=== PATIENT | female | born 1985 | race Caucasian/White ===

== ENCOUNTER 2022-09-03 10:48 | Inpatient (IN) | payer OTHER ==
[2022-09-03 11:23] VITALS: BMI 17.8
[2022-09-03] MEDS ORDERED: P-EPHED 60MG/TRIPROLIDI 2.5MG TABLET PO PRN (13:23)
[2022-09-03] MEDS ORDERED: ACETAMINOPHEN 325 MG TABLET (FP) PO PRN (13:23)
[2022-09-03] MEDS ORDERED: POLYETHYLENE GLYCOL (HEALTHYLAX) 3350 17 GM PACKET PO PRN (13:23)
[2022-09-03] MEDS ORDERED: MAG HYDROX/AL HYDROX/SIMETH 30 ML UNIT-DOSE CUP PO PRN (13:23)
[2022-09-03] MEDS ORDERED: LOPERAMIDE HCL 2 MG CAPSULE PO PRN (13:23)
[2022-09-03] MEDS ORDERED: BENZOCAINE/MENTHOL (CHLORASEPTIC ) LOZENGE MM PRN (13:23)
[2022-09-03] MEDS ORDERED: guaiFENesin 200 MG/10 ML 10 ML UNIT-DOSE CUPS PO PRN (13:23)
[2022-09-03] MEDS ORDERED: MAGNESIUM HYDROX 2400MG/30ML ORAL SUSPENSION 30 ML CUP PO PRN (13:23)
[2022-09-03] MEDS ORDERED: NICOTINE POLACRILEX 4 MG GUM BUC ONE (15:48)
[2022-09-03] MEDS: NICOTINE POLACRILEX 4 MG GUM BUC PRN (15:49)
[2022-09-03 16:16] LABS: CALCIUM 8.8 mg/dL (8.5-10.1)
[2022-09-03 16:18] LABS: ALBUMIN 3.2 g/dl (3.4-5.0); BLOOD UREA NITROGEN 34.7 mg/dL (7-18)
[2022-09-03 16:19] LABS: HEMATOCRIT 27.6 % (32.4-45.2); HEMOGLOBIN 8.1 GM/dL (10.7-15.3); MCHC 29.2 g/dl (32.0-36.0); MEAN CELL VOLUME 55.9 fl (80-96); MEAN PLT VOLUME 8.9 fl (7.5-11.1); PLATELET COUNT 463 10^3/uL (134-434); RBC 4.94 M/mm3 (3.60-5.2); RDW 21.5 % (11.6-15.6); WHITE BLOOD COUNT 7.7 K/mm3 (4.0-10.0)
[2022-09-03 16:20] LABS: CREATININE 0.9 mg/dL (0.55-1.3)
[2022-09-03 16:22] LABS: BILIRUBIN,TOTAL 0.2 mg/dL (0.2-1); TOT PROT 7.8 g/dl (6.4-8.2)
[2022-09-03 16:39] LABS: MCH 16.3 pg (25.7-33.7)
[2022-09-03 16:49] LABS: SYPHILIS W/ RPR CONF NON-REACTIVE (NONREACTIVE)
[2022-09-03] MEDS: METHOCARBAMOL 500 MG TABLET PO SCH (19:26)
[2022-09-03] MEDS: THIAMINE HCL 100 MG TABLET (FP) PO SCH (21:31)
[2022-09-03] MEDS: MELATONIN 5 MG TABLETS PO SCH (21:31)
[2022-09-03] MEDS ORDERED: TUBERCULIN PPD 5 TU/0.1ML VIAL ID ONE (21:33)
[2022-09-04] MEDS: hydrOXYzine PAMOATE 25 MG CAPSULE (FP) PO PRN (01:26)
[2022-09-04] MEDS: METHOCARBAMOL 500 MG TABLET PO SCH ×2 (07:00→17:37)
[2022-09-04] MEDS: ASPIRIN COATED 81 MG TABLET.EC PO SCH (10:14)
[2022-09-04] MEDS: ESCITALOPRAM OXALATE 20 MG TABLET PO SCH (10:14)
[2022-09-04] MEDS: predniSONE 20 MG TABLET (UD) PO SCH (10:14)
[2022-09-04] MEDS: PRENATAL VITAMINS W/ FOLIC ACID TABLET (FP) PO SCH (10:14)
[2022-09-04] MEDS: NICOTINE 7 MG/24 HOURS TOPICAL PATCH TD SCH (10:15)
[2022-09-04 11:26] LABS: PH,URINE 5.5 (5.0-8.0); URINE APPEARANCE CLEAR; URINE BILIRUBIN NEGATIVE (NEGATIVE); URINE COLOR YELLOW; URINE GLUCOSE (UA) NEGATIVE (NEGATIVE); URINE KETONE NEGATIVE (NEGATIVE); URINE LEUK ESTERASE NEGATIVE (NEGATIVE); URINE NITRITE NEGATIVE (NEGATIVE); URINE PROTEIN NEGATIVE (NEGATIVE); URINE UROBILINOGEN 0.2 mg/dL (0.2-1.0)
[2022-09-04] MEDS: ASCORBIC ACID 500 MG TABLET (FP) PO SCH (12:09)
[2022-09-04] MEDS: FERROUS SO4 325 MG TABLET (FP) PO SCH (12:10)
[2022-09-04] MEDS: GABAPENTIN 300 MG CAPSULE PO SCH ×2 (14:46→21:30)
[2022-09-04] MEDS: traZODone HCL 100 MG TABLET (FP) PO SCH (21:30)
[2022-09-04] MEDS: THIAMINE HCL 100 MG TABLET (FP) PO SCH (21:31)
[2022-09-04] MEDS: MELATONIN 5 MG TABLETS PO SCH (21:31)
[2022-09-05] MEDS: METHOCARBAMOL 500 MG TABLET PO SCH ×2 (05:09→17:22)
[2022-09-05] MEDS: GABAPENTIN 300 MG CAPSULE PO SCH ×3 (05:09→21:37)
[2022-09-05] MEDS: FERROUS SO4 325 MG TABLET (FP) PO SCH (10:44)
[2022-09-05] MEDS: ASPIRIN COATED 81 MG TABLET.EC PO SCH (10:45)
[2022-09-05] MEDS: ASCORBIC ACID 500 MG TABLET (FP) PO SCH (10:45)
[2022-09-05] MEDS: predniSONE 20 MG TABLET (UD) PO SCH (10:45)
[2022-09-05] MEDS: NICOTINE 7 MG/24 HOURS TOPICAL PATCH TD SCH (10:46)
[2022-09-05] MEDS: ESCITALOPRAM OXALATE 20 MG TABLET PO SCH (10:46)
[2022-09-05] MEDS: PRENATAL VITAMINS W/ FOLIC ACID TABLET (FP) PO SCH (10:46)
[2022-09-05] MEDS: IBUPROFEN 400 MG TABLET (FP) PO PRN (19:45)
[2022-09-05] MEDS: NICOTINE POLACRILEX 4 MG GUM BUC PRN (19:47)
[2022-09-05] MEDS: HYDROXYCHLOROQUINE SO4 200 MG TABLET (FP) PO SCH (21:36)
[2022-09-05] MEDS: traZODone HCL 100 MG TABLET (FP) PO SCH (21:36)
[2022-09-05] MEDS: MYCOPHENOLATE MOFETIL 500 MG TABLET PO SCH (21:36)
[2022-09-05] MEDS: THIAMINE HCL 100 MG TABLET (FP) PO SCH (21:36)
[2022-09-05] MEDS: MELATONIN 5 MG TABLETS PO SCH (21:37)
[2022-09-06] MEDS: METHOCARBAMOL 500 MG TABLET PO SCH ×2 (05:53→18:36)
[2022-09-06] MEDS: GABAPENTIN 300 MG CAPSULE PO SCH ×3 (06:53→21:37)
[2022-09-06] MEDS: predniSONE 20 MG TABLET (UD) PO SCH (10:13)
[2022-09-06] MEDS: ASPIRIN COATED 81 MG TABLET.EC PO SCH (10:13)
[2022-09-06] MEDS: ESCITALOPRAM OXALATE 20 MG TABLET PO SCH (10:13)
[2022-09-06] MEDS: ASCORBIC ACID 500 MG TABLET (FP) PO SCH (10:13)
[2022-09-06] MEDS: HYDROXYCHLOROQUINE SO4 200 MG TABLET (FP) PO SCH ×2 (10:13→21:37)
[2022-09-06] MEDS: PRENATAL VITAMINS W/ FOLIC ACID TABLET (FP) PO SCH (10:13)
[2022-09-06] MEDS: MYCOPHENOLATE MOFETIL 500 MG TABLET PO SCH ×2 (10:14→21:37)
[2022-09-06] MEDS: FERROUS SO4 325 MG TABLET (FP) PO SCH (10:14)
[2022-09-06] MEDS: NICOTINE 7 MG/24 HOURS TOPICAL PATCH TD SCH (10:15)
[2022-09-06] MEDS: NICOTINE POLACRILEX 4 MG GUM BUC PRN (10:16)
[2022-09-06] MEDS: MELATONIN 5 MG TABLETS PO SCH (21:37)
[2022-09-06] MEDS: THIAMINE HCL 100 MG TABLET (FP) PO SCH (21:37)
[2022-09-06] MEDS: traZODone HCL 100 MG TABLET (FP) PO SCH (21:37)
[2022-09-07] MEDS: METHOCARBAMOL 500 MG TABLET PO SCH ×2 (05:26→17:24)
[2022-09-07] MEDS: GABAPENTIN 300 MG CAPSULE PO SCH ×3 (06:26→22:11)
[2022-09-07] MEDS ORDERED: TRIMETHOBENZAMIDE HCL 200MG/2ML INJ IM ONE (06:55)
[2022-09-07] MEDS: PRENATAL VITAMINS W/ FOLIC ACID TABLET (FP) PO SCH (11:24)
[2022-09-07] MEDS: MYCOPHENOLATE MOFETIL 500 MG TABLET PO SCH ×2 (11:24→22:12)
[2022-09-07] MEDS: FERROUS SO4 325 MG TABLET (FP) PO SCH (11:26)
[2022-09-07] MEDS: ESCITALOPRAM OXALATE 20 MG TABLET PO SCH (11:26)
[2022-09-07] MEDS: predniSONE 20 MG TABLET (UD) PO SCH (11:26)
[2022-09-07] MEDS: ASPIRIN COATED 81 MG TABLET.EC PO SCH (11:26)
[2022-09-07] MEDS: HYDROXYCHLOROQUINE SO4 200 MG TABLET (FP) PO SCH ×2 (11:28→22:12)
[2022-09-07] MEDS: ASCORBIC ACID 500 MG TABLET (FP) PO SCH (11:29)
[2022-09-07] MEDS: NICOTINE 7 MG/24 HOURS TOPICAL PATCH TD SCH (11:31)
[2022-09-07] MEDS: traZODone HCL 100 MG TABLET (FP) PO SCH (22:11)
[2022-09-07] MEDS: THIAMINE HCL 100 MG TABLET (FP) PO SCH (22:12)
[2022-09-07] MEDS: MELATONIN 5 MG TABLETS PO SCH (22:13)
[2022-09-08] MEDS: METHOCARBAMOL 500 MG TABLET PO SCH ×2 (05:45→16:52)
[2022-09-08] MEDS: GABAPENTIN 300 MG CAPSULE PO SCH ×3 (07:14→21:59)
[2022-09-08 09:30] LABS: INR 1.05 (0.83-1.09); PROTHROMBIN TIME (PATIENT) 12.2 SEC (9.7-13.0)
[2022-09-08 09:34] LABS: ALBUMIN 2.8 g/dl (3.4-5.0); CALCIUM 8.1 mg/dL (8.5-10.1); HEMATOCRIT 23.3 % (32.4-45.2); HEMOGLOBIN 7.2 GM/dL (10.7-15.3); MCHC 30.8 g/dl (32.0-36.0); MEAN CELL VOLUME 56.5 fl (80-96); PLATELET COUNT 436 10^3/uL (134-434); RBC 4.12 M/mm3 (3.60-5.2); RDW 21.4 % (11.6-15.6); WHITE BLOOD COUNT 6.4 K/mm3 (4.0-10.0)
[2022-09-08 09:35] LABS: BLOOD UREA NITROGEN 17.4 mg/dL (7-18); MCH 17.4 pg (25.7-33.7)
[2022-09-08 09:38] LABS: CREATININE 0.7 mg/dL (0.55-1.3)
[2022-09-08 09:39] LABS: BILIRUBIN,TOTAL 0.2 mg/dL (0.2-1); TOT PROT 6.5 g/dl (6.4-8.2)
[2022-09-08] MEDS ORDERED: ONDANSETRON *ODT* 4 MG TABLET SL PRN (10:23)
[2022-09-08] MEDS: PRENATAL VITAMINS W/ FOLIC ACID TABLET (FP) PO SCH (10:31)
[2022-09-08] MEDS: ASPIRIN COATED 81 MG TABLET.EC PO SCH (10:32)
[2022-09-08] MEDS: FERROUS SO4 325 MG TABLET (FP) PO SCH (10:32)
[2022-09-08] MEDS: ESCITALOPRAM OXALATE 20 MG TABLET PO SCH (10:32)
[2022-09-08] MEDS: predniSONE 20 MG TABLET (UD) PO SCH (10:32)
[2022-09-08] MEDS: NICOTINE 7 MG/24 HOURS TOPICAL PATCH TD SCH (10:33)
[2022-09-08] MEDS: MYCOPHENOLATE MOFETIL 500 MG TABLET PO SCH ×2 (10:35→21:59)
[2022-09-08] MEDS: HYDROXYCHLOROQUINE SO4 200 MG TABLET (FP) PO SCH ×2 (10:35→21:59)
[2022-09-08] MEDS: IBUPROFEN 400 MG TABLET (FP) PO PRN (12:15)
[2022-09-08] MEDS: ASCORBIC ACID 500 MG TABLET (FP) PO SCH (15:33)
[2022-09-08] MEDS: MELATONIN 5 MG TABLETS PO SCH (21:59)
[2022-09-08] MEDS: THIAMINE HCL 100 MG TABLET (FP) PO SCH (21:59)
[2022-09-08] MEDS: traZODone HCL 100 MG TABLET (FP) PO SCH (22:01)
[2022-09-08] MEDS: NICOTINE 10 MG CARTRIDGE (INHALER) IH PRN (22:01)
[2022-09-09] MEDS: GABAPENTIN 300 MG CAPSULE PO SCH ×3 (08:05→21:17)
[2022-09-09] MEDS: METHOCARBAMOL 500 MG TABLET PO SCH ×2 (08:05→17:55)
[2022-09-09] MEDS: ASPIRIN COATED 81 MG TABLET.EC PO SCH (10:51)
[2022-09-09] MEDS: PRENATAL VITAMINS W/ FOLIC ACID TABLET (FP) PO SCH (10:51)
[2022-09-09] MEDS: ESCITALOPRAM OXALATE 20 MG TABLET PO SCH (10:51)
[2022-09-09] MEDS: ASCORBIC ACID 500 MG TABLET (FP) PO SCH (10:51)
[2022-09-09] MEDS: predniSONE 20 MG TABLET (UD) PO SCH (10:51)
[2022-09-09] MEDS: MYCOPHENOLATE MOFETIL 500 MG TABLET PO SCH ×2 (10:51→21:53)
[2022-09-09] MEDS: HYDROXYCHLOROQUINE SO4 200 MG TABLET (FP) PO SCH ×2 (10:51→21:17)
[2022-09-09] MEDS: FERROUS SO4 325 MG TABLET (FP) PO SCH (10:53)
[2022-09-09] MEDS: NICOTINE 7 MG/24 HOURS TOPICAL PATCH TD SCH (10:56)
[2022-09-09] MEDS: traZODone HCL 100 MG TABLET (FP) PO SCH (21:17)
[2022-09-09] MEDS: THIAMINE HCL 100 MG TABLET (FP) PO SCH (21:18)
[2022-09-09] MEDS: MELATONIN 5 MG TABLETS PO SCH (21:18)
[2022-09-10] MEDS: METHOCARBAMOL 500 MG TABLET PO SCH ×2 (06:15→17:18)
[2022-09-10] MEDS: GABAPENTIN 300 MG CAPSULE PO SCH ×3 (06:46→21:23)
[2022-09-10] MEDS: ESCITALOPRAM OXALATE 20 MG TABLET PO SCH (11:06)
[2022-09-10] MEDS: ASCORBIC ACID 500 MG TABLET (FP) PO SCH (11:06)
[2022-09-10] MEDS: ASPIRIN COATED 81 MG TABLET.EC PO SCH (11:06)
[2022-09-10] MEDS: predniSONE 20 MG TABLET (UD) PO SCH (11:06)
[2022-09-10] MEDS: HYDROXYCHLOROQUINE SO4 200 MG TABLET (FP) PO SCH ×2 (11:06→21:23)
[2022-09-10] MEDS: PRENATAL VITAMINS W/ FOLIC ACID TABLET (FP) PO SCH (11:06)
[2022-09-10] MEDS: NICOTINE 7 MG/24 HOURS TOPICAL PATCH TD SCH (11:07)
[2022-09-10] MEDS: FERROUS SO4 325 MG TABLET (FP) PO SCH (11:08)
[2022-09-10] MEDS: MYCOPHENOLATE MOFETIL 500 MG TABLET PO SCH ×2 (12:03→21:23)
[2022-09-10] MEDS: IBUPROFEN 400 MG TABLET (FP) PO PRN (17:21)
[2022-09-10] MEDS: MELATONIN 5 MG TABLETS PO SCH (21:22)
[2022-09-10] MEDS: traZODone HCL 100 MG TABLET (FP) PO SCH (21:23)
[2022-09-10] MEDS: THIAMINE HCL 100 MG TABLET (FP) PO SCH (21:23)
[2022-09-11] MEDS: METHOCARBAMOL 500 MG TABLET PO SCH ×2 (07:13→17:51)
[2022-09-11] MEDS: GABAPENTIN 300 MG CAPSULE PO SCH ×3 (07:13→21:47)
[2022-09-11] MEDS: ASCORBIC ACID 500 MG TABLET (FP) PO SCH (10:29)
[2022-09-11] MEDS: MYCOPHENOLATE MOFETIL 500 MG TABLET PO SCH ×2 (10:29→21:47)
[2022-09-11] MEDS: FERROUS SO4 325 MG TABLET (FP) PO SCH (10:30)
[2022-09-11] MEDS: predniSONE 20 MG TABLET (UD) PO SCH (10:30)
[2022-09-11] MEDS: HYDROXYCHLOROQUINE SO4 200 MG TABLET (FP) PO SCH ×2 (10:30→21:47)
[2022-09-11] MEDS: NICOTINE 7 MG/24 HOURS TOPICAL PATCH TD SCH (10:30)
[2022-09-11] MEDS: ASPIRIN COATED 81 MG TABLET.EC PO SCH (10:30)
[2022-09-11] MEDS: ESCITALOPRAM OXALATE 20 MG TABLET PO SCH (10:30)
[2022-09-11] MEDS: PRENATAL VITAMINS W/ FOLIC ACID TABLET (FP) PO SCH (10:30)
[2022-09-11] MEDS: IBUPROFEN 400 MG TABLET (FP) PO PRN (14:54)
[2022-09-11] MEDS: NICOTINE 10 MG CARTRIDGE (INHALER) IH PRN (21:45)
[2022-09-11] MEDS: MELATONIN 5 MG TABLETS PO SCH (21:45)
[2022-09-11] MEDS: traZODone HCL 100 MG TABLET (FP) PO SCH (21:46)
[2022-09-11] MEDS: THIAMINE HCL 100 MG TABLET (FP) PO SCH (21:47)
[2022-09-12] MEDS: METHOCARBAMOL 500 MG TABLET PO SCH ×2 (06:05→18:06)
[2022-09-12] MEDS: GABAPENTIN 300 MG CAPSULE PO SCH ×3 (07:05→21:54)
[2022-09-12] MEDS: NICOTINE 7 MG/24 HOURS TOPICAL PATCH TD SCH (10:45)
[2022-09-12] MEDS: predniSONE 20 MG TABLET (UD) PO SCH (10:45)
[2022-09-12] MEDS: PRENATAL VITAMINS W/ FOLIC ACID TABLET (FP) PO SCH (10:45)
[2022-09-12] MEDS: FERROUS SO4 325 MG TABLET (FP) PO SCH (10:45)
[2022-09-12] MEDS: ESCITALOPRAM OXALATE 20 MG TABLET PO SCH (10:45)
[2022-09-12] MEDS: ASPIRIN COATED 81 MG TABLET.EC PO SCH (10:45)
[2022-09-12] MEDS: HYDROXYCHLOROQUINE SO4 200 MG TABLET (FP) PO SCH ×2 (10:46→21:54)
[2022-09-12] MEDS: ASCORBIC ACID 500 MG TABLET (FP) PO SCH (10:46)
[2022-09-12] MEDS: MYCOPHENOLATE MOFETIL 500 MG TABLET PO SCH ×2 (10:46→21:54)
[2022-09-12] MEDS: THIAMINE HCL 100 MG TABLET (FP) PO SCH (21:54)
[2022-09-12] MEDS: MELATONIN 5 MG TABLETS PO SCH (21:54)
[2022-09-12] MEDS: traZODone HCL 100 MG TABLET (FP) PO SCH (21:54)
[2022-09-13] MEDS: METHOCARBAMOL 500 MG TABLET PO SCH ×2 (07:02→17:34)
[2022-09-13] MEDS: GABAPENTIN 300 MG CAPSULE PO SCH ×2 (07:02→13:34)
[2022-09-13] MEDS: NICOTINE 7 MG/24 HOURS TOPICAL PATCH TD SCH (09:55)
[2022-09-13] MEDS: PRENATAL VITAMINS W/ FOLIC ACID TABLET (FP) PO SCH (09:55)
[2022-09-13] MEDS: predniSONE 20 MG TABLET (UD) PO SCH (09:56)
[2022-09-13] MEDS: ASPIRIN COATED 81 MG TABLET.EC PO SCH (09:56)
[2022-09-13] MEDS: FERROUS SO4 325 MG TABLET (FP) PO SCH (09:56)
[2022-09-13] MEDS: ESCITALOPRAM OXALATE 20 MG TABLET PO SCH (09:56)
[2022-09-13] MEDS: HYDROXYCHLOROQUINE SO4 200 MG TABLET (FP) PO SCH (09:57)
[2022-09-13] MEDS: MYCOPHENOLATE MOFETIL 500 MG TABLET PO SCH (09:57)
[2022-09-13] MEDS: ASCORBIC ACID 500 MG TABLET (FP) PO SCH (09:57)
[2022-09-13] MEDS: NICOTINE POLACRILEX 4 MG GUM BUC PRN (13:36)
[2022-09-13] MEDS: hydrOXYzine PAMOATE 25 MG CAPSULE (FP) PO PRN (14:23)
[2022-09-13] MEDS ORDERED: FERROUS SO4 325 MG TABLET (FP) PO SCH (17:30)
[2022-09-13 20:28] VITALS: BP 125/69; PULSE 101; RESP 17; TEMP 98
== END 2022-09-13 20:37 | disposition left against medical advice (07) | DRG 770 ==
LOC: YASAS 10:48 → Y5N 18:51
PROVIDERS: ADMIT Allergy & Immunology; ATTEND Psychiatry & Neurology Pain Medicine
PROC: HZ42ZZZ Group Counseling for Substance Abuse Treatment, Cognitive-Behavioral (ICD-10-PCS; principal; 2022-09-03)
DX: F14.20 Cocaine dependence, uncomplicated (principal); F10.20 Alcohol dependence, uncomplicated; F12.20 Cannabis dependence, uncomplicated; F15.10 Other stimulant abuse, uncomplicated; F33.1 Major depressive disorder, recurrent, moderate; F19.282 Other psychoactive substance dependence with psychoactive substance-induced sleep disorder; F19.280 Other psychoactive substance dependence with psychoactive substance-induced anxiety disorder; F41.8 Other specified anxiety disorders; D50.9 Iron deficiency anemia, unspecified; E78.5 Hyperlipidemia, unspecified; I10 Essential (primary) hypertension; R11.0 Nausea; R63.4 Abnormal weight loss; Z68.1 Body mass index [BMI] 19.9 or less, adult; Z86.19 Personal history of other infectious and parasitic diseases; Z59.02 Unsheltered homelessness; Z88.0 Allergy status to penicillin
CPT/HCPCS: 36415; 80053; 81003; 82962; 85027; 85610; 86780; 86803; 87522; 87811; C9803-CS; J7517; Q0162; U0003; U0005